=== PATIENT | female | born 1975 | race Caucasian/White ===

== ENCOUNTER → 2016-07-23 | Outpatient (CLI) | payer BC ==
[~2016-07-23] MED LIST: NORCO 325 MG-7.1 TAB PO; PRENATAL VITAMI1 TA5 PO
== END ==
LOC: MC.RAD 08:40
DX: Z12.31 Encounter for screening mammogram for malignant neoplasm of breast (principal)

== ENCOUNTER → 2017-10-29 | Outpatient (CLI) | payer BC | LOC: MC.RAD 09:00 | DX: Z12.31 Encounter for screening mammogram for malignant neoplasm of breast (principal) ==

== ENCOUNTER → 2019-01-13 | Outpatient (CLI) | payer BC | LOC: MC.RAD 08:30 | DX: Z12.31 Encounter for screening mammogram for malignant neoplasm of breast (principal); N63.10 Unspecified lump in the right breast, unspecified quadrant; N63.20 Unspecified lump in the left breast, unspecified quadrant ==

== ENCOUNTER → 2020-02-09 | Outpatient (CLI) | payer BC | LOC: MC.RAD 08:00 | DX: Z12.31 Encounter for screening mammogram for malignant neoplasm of breast (principal) ==

== ENCOUNTER 2022-05-04 06:21 | Day surgery (SDC) | payer BC ==
[~2022-05-04] VITALS: Ht 170.2 cm; Wt 122.3 kg
[2022-05-04] MEDS ORDERED: LOPRESSOR 550 MG/TAB PO (07:12)
[2022-05-04] MEDS ORDERED: MOBIC15 MG PO (07:13)
[2022-05-04] MEDS ORDERED: LEXAPRO 10MG10 MG PO (07:13)
[2022-05-04] MEDS ORDERED: PRINIVIL5 MG PO (07:14)
[2022-05-04 07:16] VITALS: BP 133/85; PULSE 67; TEMP 97.1
[2022-05-04 08:15] VITALS: BP 127/87; PULSE 60; TEMP 97.1
--- NOTE | 2022-05-04 08:15 | NUR ---
0815 PATIENT RETURNS TO ROOM 3 VIA CART. PATIENT IS ALERT AND ORIENTED. PATIENT AMBULATES TO RECLINER WITH THE ASSISTANCE OF 2 NURSES. RESPIRTAIONS EVEN AND UNLABORED. VITAL SIGNS OBTAINED. NO C/O PAIN. 0820 PATIENT REQUESTED WATER AND A MUFFIN. NO DIFFICULTIES SWALLOWING. 0824 DOCTOR IN TO SPEAK WITH PATIENT. 0840 DISCONTINUE IV FROM RIGHT HAND WITH NO DIFFICULTIES. 0845 THIS NURSE REVIEWED DISCHARGE INSTRUCTIONS. PATIENT VERBALIZED UNDERSTANDING. 0850 PATIENT DRESSES SELF. 1000 PATIENT DISCHARGES FROM UNIT VIA WHEELCHAIR.
[2022-05-04 08:30] VITALS: BP 126/78; PULSE 58
[2022-05-04 08:45] VITALS: BP 124/92; PULSE 65
[2022-05-04 09:45] VITALS: BP 127/87; PULSE 57
== END 2022-05-04 10:00 | disposition home or self-care (01) ==
LOC: SDCO 06:21
DX: Z12.11 Encounter for screening for malignant neoplasm of colon (principal); K57.30 Diverticulosis of large intestine without perforation or abscess without bleeding; G47.33 Obstructive sleep apnea (adult) (pediatric)
CPT/HCPCS: J2704; J3010; J7120

== ENCOUNTER → 2023-09-27 | Outpatient (CLI) | payer BC ==
[~2023-09-27] MED LIST changes: +COZAAR 25MG25 MG/TAB PO; +LEXAPRO 10MG10 MG PO; +LOPRESSOR 550 MG/TAB PO; +MAG-OX 400400 MG/TAB PO; +MOBIC15 MG PO; +PRINIVIL5 MG PO; +SAXENDA6 MG/ML SQ; +areds2 PO
== END ==
LOC: MC.RAD 08:00
DX: Z12.31 Encounter for screening mammogram for malignant neoplasm of breast (principal)